=== PATIENT | female | born 1965 | race American Indian/Alaskan Native ===

== ENCOUNTER 2016-09-11 13:54 | Outpatient (CLI) | payer OTHER ==
--- NOTE | 2016-09-11 15:13 | Mammography Report ---
BILATERAL DIGITAL SCREENING MAMMOGRAM : 09/11/16 13:54:00 CLINICAL: Routine screening. COMPARISON:09/03/15 FINDINGS: The breasts are heterogeneously dense, which may obscure small masses. Left asymmetries require additional imaging.No architectural distortion or suspicious calcifications.The right breast is negative. IMPRESSION: Left asymmetries requiring further workup. BI-RADS CATEGORY: 0 -- Additional Imaging Evaluation Required RECOMMENDATION: Recall for left lateralmedial and spot compression MLO and CC views and left breast ultrasound. ACR BI-RADS MAMMOGRAPHIC CODES: 0 = Needs additional imaging evaluation; 1 = Negative; 2 = Benign; 3 = Probably benign; 4 = Suspicious; 5 = Malignant; 6 = Known biopsy-proven malignancy COMMENT: 1. Dense breast tissue, i.e., adenosis, fibrocystic changes, etc., may obscure an underlying neoplasm. 2. Approximately 10% of cancers are not detected with mammography. 3. A negative mammography report should not delay biopsy if a clinically suspicious mass is present. COMMENT: Patient follow-up letters are generated via our [employer] application.
== END 2016-09-11 13:55 | disposition home or self-care (01) ==
LOC: SPVWC 13:54
PROVIDERS: ATTEND Internal Medicine
DX: Z12.31 Encounter for screening mammogram for malignant neoplasm of breast (principal)
CPT/HCPCS: 77067; G0202

== ENCOUNTER 2016-09-17 14:17 | Outpatient (CLI) | payer OTHER ==
--- NOTE | 2016-09-17 15:22 | Ultrasound Report ---
LEFT DIGITAL DIAGNOSTIC MAMMOGRAM and LEFT BREAST ULTRASOUND: 09/17/16 14:17:00 CLINICAL: Recalled for asymmetry. COMPARISON:09/11/16 screening FINDINGS: Lateralmedial and spot compression MLO and CC views were performed. An oval circumscribed mass or cyst persists on all views. Ultrasound of the inner left breast was performed and demonstrated a benign cyst at 10 o'clock 4.5 cm from the nipple measuring 7 x 4 x 6 mm. It correlates with the mammographic density. A second cyst is identified at 12 o'clock subareolar and it measures 5 x 4 x 3 mm. No solid mass. IMPRESSION: Benign cysts left breast. BI-RADS CATEGORY: 2 - - Benign RECOMMENDATION: Routine mammographic screening in one year. ACR BI-RADS MAMMOGRAPHIC CODES: 0 = Needs additional imaging evaluation; 1 = Negative; 2 = Benign; 3 = Probably benign; 4 = Suspicious; 5 = Malignant; 6 = Known biopsy-proven malignancy COMMENT: 1. Dense breast tissue, i.e., adenosis, fibrocystic changes, etc., may obscure an underlying neoplasm. 2. Approximately 10% of cancers are not detected with mammography. 3. A negative mammography report should not delay biopsy if a clinically suspicious mass is present. COMMENT: Patient follow-up letters are generated via our [employer] application.
== END 2016-09-17 14:18 | disposition home or self-care (01) ==
LOC: SPVWC 14:17
PROVIDERS: ATTEND Internal Medicine
DX: N60.02 Solitary cyst of left breast (principal); R92.8 Other abnormal and inconclusive findings on diagnostic imaging of breast
CPT/HCPCS: 76642; G0206